=== PATIENT | male | born 1960 | race Native Hawaiian/Other Pacific Islander ===

== ENCOUNTER 2019-02-01 10:39 | Outpatient (CLI) | payer OTHER | END 2019-02-01 19:38 | disposition home or self-care (01) | LOC: LABW 10:39 | DX: N18.3 Chronic kidney disease, stage 3 (moderate) (principal) | CPT/HCPCS: 81000; 82043; 82570; 84155 ==

== ENCOUNTER 2021-07-17 07:10 | Outpatient (CLI) | payer OTHER ==
[2021-07-17 08:10] LABS: PARTIAL THROMBOPLASTIN TIME 25.7 SECONDS (24.5-33.6)
[2021-07-17 08:21] LABS: POTASSIUM 4.2 mmol/L (3.6-5.2)
[2021-07-17 08:39] LABS: PLATELET COUNT 44 K/uL (142-355)
== END 2021-07-17 19:02 | disposition home or self-care (01) ==
LOC: LABW 07:10
PROVIDERS: ATTEND Internal Medicine Medical Oncology
DX: D69.3 Immune thrombocytopenic purpura (principal); R16.2 Hepatomegaly with splenomegaly, not elsewhere classified; R06.02 Shortness of breath
CPT/HCPCS: 36415; 80053; 85027; 85610; 85730

== ENCOUNTER 2021-07-25 11:28 | Outpatient (CLI) | payer OTHER ==
[2021-07-25 11:55] LABS: PLATELET COUNT 24 K/uL (142-355)
[2021-07-25 11:57] LABS: PARTIAL THROMBOPLASTIN TIME 26.1 SECONDS (24.5-33.6)
[2021-07-25 12:00] LABS: POTASSIUM 4.1 mmol/L (3.6-5.2)
== END 2021-07-25 22:15 | disposition home or self-care (01) ==
LOC: LABW 11:28
PROVIDERS: ATTEND Internal Medicine Medical Oncology
DX: D69.3 Immune thrombocytopenic purpura (principal); R16.2 Hepatomegaly with splenomegaly, not elsewhere classified; R06.02 Shortness of breath
CPT/HCPCS: 36415; 80053; 85027; 85610; 85730

== ENCOUNTER 2021-08-01 08:27 | Outpatient (CLI) | payer OTHER ==
[2021-08-01 09:16] LABS: PLATELET COUNT 339 K/uL (142-355)
[2021-08-01 09:46] LABS: POTASSIUM 4.8 mmol/L (3.6-5.2)
== END 2021-08-01 19:08 | disposition home or self-care (01) ==
LOC: LABW 08:27
PROVIDERS: ATTEND Internal Medicine Medical Oncology
DX: D69.3 Immune thrombocytopenic purpura (principal); R06.02 Shortness of breath; R16.2 Hepatomegaly with splenomegaly, not elsewhere classified
CPT/HCPCS: 36415; 80053; 85027

== ENCOUNTER 2021-08-06 08:30 | Outpatient (CLI) | payer OTHER ==
[2021-08-06 08:41] LABS: PLATELET COUNT 264 K/uL (142-355)
[2021-08-06 08:55] LABS: POTASSIUM 4.2 mmol/L (3.6-5.2)
== END 2021-08-06 19:01 | disposition home or self-care (01) ==
LOC: LABW 08:30
PROVIDERS: ATTEND Internal Medicine Medical Oncology
DX: D69.3 Immune thrombocytopenic purpura (principal); R16.2 Hepatomegaly with splenomegaly, not elsewhere classified; R06.02 Shortness of breath
CPT/HCPCS: 36415; 80053; 85027

== ENCOUNTER 2021-08-08 08:11 | Outpatient (CLI) | payer OTHER ==
[2021-08-08 08:25] LABS: PLATELET COUNT 178 K/uL (142-355)
[2021-08-08 08:32] LABS: POTASSIUM 4.2 mmol/L (3.6-5.2)
== END 2021-08-08 20:09 | disposition home or self-care (01) ==
LOC: LABW 08:11
PROVIDERS: ATTEND Internal Medicine Cardiovascular Disease
DX: Z01.818 Encounter for other preprocedural examination (principal)
CPT/HCPCS: 36415; 80048; 85027